=== PATIENT | female | born 1950 | race Caucasian/White ===

== ENCOUNTER → 2016-11-29 | Outpatient (CLI) | payer MEDICARE, OTHER ==
[~2016-11-29] MED LIST: LIPITOR TAB 1010 MG PO; LISINOPRIL-HCT1 EACH PO; MOBIC15 MG PO; ONGLYZA2.5 MG PO; PHENERGAN 25 MG25 M1 PO; TENORMIN 25 MG25 MG PO; ZANTAC150 MG PO
== END ==
LOC: EXRD 08:19
DX: M25.552 Pain in left hip (principal)
CPT/HCPCS: 73502

== ENCOUNTER 2016-12-13 22:36 | Emergency (ER) | payer MEDICARE, OTHER | END 2016-12-14 01:30 | disposition left against medical advice (07) | LOC: ER1 22:36 | DX: Z53.21 Procedure and treatment not carried out due to patient leaving prior to being seen by health care provider (principal) ==

== ENCOUNTER → 2020-10-09 | Outpatient (CLI) | payer MEDICARE, OTHER ==
[~2020-10-09] MED LIST changes: +FORTAMET500 MG PO; +OMEPRAZOLE40 MG PO; +VITAMIN D2000 UNIT PO
== END ==
LOC: KOH-I 09:07
DX: M54.5 Low back pain (principal); M47.816 Spondylosis without myelopathy or radiculopathy, lumbar region
CPT/HCPCS: 72100

== ENCOUNTER → 2020-10-23 | Outpatient (CLI) | payer MEDICARE, OTHER | LOC: KOH-I 10:55 | DX: R29.898 Other symptoms and signs involving the musculoskeletal system (principal); M47.817 Spondylosis without myelopathy or radiculopathy, lumbosacral region; M48.061 Spinal stenosis, lumbar region without neurogenic claudication | CPT/HCPCS: 72148 ==

== ENCOUNTER 2021-04-16 17:23 | Emergency (ER) | payer MEDICARE, OTHER | END 2021-04-16 20:40 | disposition home or self-care (01) | LOC: ER1 17:23 | DX: M25.562 Pain in left knee (principal); E11.9 Type 2 diabetes mellitus without complications; I10 Essential (primary) hypertension; Z88.0 Allergy status to penicillin | CPT/HCPCS: 29530; 29540; 73562; 99283 ==

== ENCOUNTER → 2022-04-16 | Outpatient (CLI) | payer MEDICARE, OTHER ==
[2022-04-16 13:53] LABS: HEMOGLOBIN 14.2 gm/dl (12.3-15.3); RED BLOOD COUNT 4.64 M/UL (4.00-5.10)
[2022-04-16 14:10] LABS: BUN/CREATININE RATIO 21 (0-10)
[2022-04-17 09:13] LABS: CREATININE, URINE 310.1 mg/dL (Not Estab.)
== END ==
LOC: LAB 13:26
PROVIDERS: Physician Assistant
DX: E11.9 Type 2 diabetes mellitus without complications (principal); E78.5 Hyperlipidemia, unspecified; I10 Essential (primary) hypertension; E55.9 Vitamin D deficiency, unspecified
CPT/HCPCS: 36415; 80053; 80061; 82043; 82570; 83036; 85025

== ENCOUNTER → 2022-04-28 | Outpatient (CLI) | payer MEDICARE, OTHER | LOC: US 13:51 → CT 15:00 | PROVIDERS: Emergency Medicine | DX: R59.0 Localized enlarged lymph nodes (principal); E04.2 Nontoxic multinodular goiter | CPT/HCPCS: 76536; 80053; 84439; 84443 ==

== ENCOUNTER → 2022-05-05 | Outpatient (CLI) | payer MEDICARE, OTHER | LOC: CT 05-03 08:30 | DX: R59.0 Localized enlarged lymph nodes (principal); E04.2 Nontoxic multinodular goiter; R94.6 Abnormal results of thyroid function studies | CPT/HCPCS: 70492; Q9967 ==